=== PATIENT | male | born 1995 | race Caucasian/White ===

== ENCOUNTER 2022-04-23 07:22 | Emergency (ER) | payer BC, OTHER ==
[~2022-04-23] VITALS: Ht 195.6 cm; Wt 93.0 kg
[2022-04-23 07:22] VITALS: BP 115/76
--- NOTE | 2022-04-23 07:22 | NUR ---
BIBS C/O SORE THROAT AND HAS TROUBLE SWALLOWING X2 DAYS , TOOK COUGH SYRUP NO RELIEF, PT STATED PAIN IS 8/10 ON R SIDE. DENIES SHORTNESS OF BREATH. PT HAS NOT TAKEN COVID TEST AT HOME. VITALS ARE WITHIN NORMAL LIMITS. AWAITING MD VARGAS.
[2022-04-23] MEDS ORDERED: LIDOCAINE VISCOUS 2% UD 15 ML UDC ONE (07:55)
[2022-04-23] MEDS ORDERED: ACETAMINOPHEN ES 500 MG TABLET ONE (07:55)
[2022-04-23] MEDS ORDERED: LIDOCAINE VISCOUS 2% UD 15 ML UDC MM ONE (08:00)
[2022-04-23] MEDS ORDERED: ACETAMINOPHEN ES 500 MG TABLET PO ONE (08:00)
[2022-04-23] MEDS ORDERED: AMOX500C2 PO (08:01)
--- NOTE | 2022-04-23 08:11 | NUR ---
RAPID STREP AND THROAT CULTURE COLLECTED AND SENT
== END 2022-04-23 09:01 | disposition home or self-care (01) ==
LOC: ER 07:41
DX: J02.9 Acute pharyngitis, unspecified (principal); Z79.899 Other long term (current) drug therapy
CPT/HCPCS: 86403-TC; 87070-TC